=== PATIENT | male | born 1960 | race Caucasian/White ===

== ENCOUNTER → 2023-12-11 08:37 | Outpatient (REF) | payer BC, SELFPAY ==
[2023-12-11 10:20] LABS: % Basophils 1.1 % (0-2); % Eosinophils 2.8 % (0-6); % Immature Granulocytes 0.2 % (0-0.5); % Lymphocytes 16.2 % (20.5-51.1); % Neutrophils 72.7 % (42.2-75.2); Absolute Basophils 0.1 10^3/uL (0-0.2); Absolute Eosinophils 0.2 10^3/uL (0-0.7); Absolute Lymphocytes 0.9 10^3/uL (1.2-3.4); Absolute Monocytes 0.4 10^3/uL (0.1-0.6); Absolute Neutrophils 4.1 10^3/uL (1.4-6.5); Hematocrit 44.8 % (39.0-52.0); Hemoglobin 15.1 g/dL (13.0-18.0); Mean Corp Hgb Conc. 33.7 g/dL (33.0-37.0); Mean Corpuscular Volume 88.9 fL (80.0-94.0); Nucleated Red Blood Cells % 0 % (-); Platelet Count 229 10^3/uL (130-400); Red Blood Cell Count 5.04 10^6/uL (4.70-6.10); Red Cell Dist. Width 12.9 % (11.5-14.5); White Blood Cell Count 5.7 10^3/uL (4.8-10.8)
[2023-12-11 10:55] LABS: Erythrocyte Sed Rate 19 mm/hour (0-20)
[2023-12-11 14:39] LABS: ALT (SGPT) 15 U/L (0-50); AST (SGOT) 30 U/L (17-59); Albumin 4.6 g/dl (3.5-5.0); Alkaline Phosphatase 91 U/L (38-126); Blood Urea Nitrogen 16 mg/dl (9-20); Calcium 9.9 mg/dl (8.4-10.2); Carbon Dioxide 24 mmol/L (22-30); Chloride 104 mmol/L (98-107); Glucose 87 mg/dl (70-99); Potassium 4.9 mmol/L (3.5-5.1); Sodium 137 mmol/L (135-145); Total Bilirubin 0.7 mg/dl (0.2-1.3); Total Cholesterol 206 mg/dl (50-199); Total Protein 6.9 g/dl (6.3-8.2); Triglyceride 140 mg/dl (10-149); Very Low Density Lipoprotein 28 mg/dl (0-30); eGFR > 60.00
[2023-12-11 14:49] LABS: HDL Cholesterol 114 mg/dl; LDL Cholesterol, Calculated 64 mg/dl
[2023-12-11 14:50] LABS: LDL Cholesterol, Direct 84 mg/dl
[2023-12-11 14:54] LABS: PSA, Total - Screen 0.62 ng/ml (0.0-4.0)
[2023-12-11 15:13] LABS: Vitamin B12 848 pg/ml (239-931)
[2023-12-11 17:38] LABS: Microalbumin, Random Urine 0.7 mg/dl (0.6-1.7)
[2023-12-12 18:49] LABS: Vitamin D 1,25 Dihydroxy 65.1 pg/mL (19.9-79.3)
[2023-12-14 19:01] LABS: Calprotectin, Fecal 227 ug/g (<=49)
== END ==
LOC: REG 08:37
PROVIDERS: ATTENDING PHYSICIAN Internal Medicine Gastroenterology; FAMILY PHYSICIAN Family Medicine
DX: Z00.00 Encounter for general adult medical examination without abnormal findings (principal); I10 Essential (primary) hypertension; N18.31 Chronic kidney disease, stage 3a; K50.80 Crohn's disease of both small and large intestine without complications; E55.9 Vitamin D deficiency, unspecified; Z79.899 Other long term (current) drug therapy
CPT/HCPCS: 36415; 80053; 80061; 82043; 82607; 82652; 83721; 83993; 85025; 85652; 86140; G0103

== ENCOUNTER 2025-01-30 06:33 | Day surgery (SDC) | payer MEDICARE, SELFPAY | END 2025-01-30 12:04 | disposition home or self-care (01) | LOC: GI 06:33 | PROVIDERS: ATTENDING PHYSICIAN Internal Medicine Gastroenterology | DX: K62.89 Other specified diseases of anus and rectum (principal); K63.3 Ulcer of intestine; K50.80 Crohn's disease of both small and large intestine without complications; K52.9 Noninfective gastroenteritis and colitis, unspecified | CPT/HCPCS: 45380; 88305 ==

== ENCOUNTER → 2025-02-03 11:58 | Outpatient (REF) | payer MEDICARE, SELFPAY | LOC: MRI 3T 11:58 | PROVIDERS: ATTENDING PHYSICIAN Internal Medicine Gastroenterology; FAMILY PHYSICIAN Family Medicine | DX: K50.80 Crohn's disease of both small and large intestine without complications (principal) | CPT/HCPCS: 72197; 74183; A9575 ==